=== PATIENT | female | born 1940 | race Caucasian/White ===

== ENCOUNTER 2016-06-17 23:23 | Emergency (ER) | payer OTHER ==
[~2016-06-17] VITALS: Ht 162.6 cm; Wt 113.4 kg
--- NOTE | ~2016-06-17 | EKG ---
[address] [address] ELECTROCARDIOGRAM REPORT Name: MADI MATOS Room #: DEP Vick#: [id number] Admission: 06/17/16 Attend Phys: Discharge: 06/18/16 Date of : 40 Report #: [id number] THIS REPORT FOR: //name// [facility] ED Test Date: 2016-06-17 Test Time: 23:33:49 Pat Name: MADI MATOS Department: Room: Gender: F Hospital Pharmacy Technician: EARNEST : 1940 Requested By: Nina Brown Order Number: [id number] MD: Alex Bolden Measurements Intervals [place] Rate: 89 P: [place]: QRS: -2 QRSD: 90 T: 81 QT: 391 QTc: 476 Interpretive Statements Atrial fibrillation Probable LVH with secondary repol abnrm Anterior Q waves, possibly due to LVH No previous ECG available for comparison Electronically Signed On 06-18-2016 15:30:38 CDT by Alex Bolden [email or web address] <ELECTRONICALLY SIGNED> By: Alex Bolden MD 06/18/16 1530 D: 03/2332 32 Alex Bolden MD /STEPHANIE
[~2016-06-17 23:23] MED LIST: ACETAMINOPHEN325 M1 PO; AFLURIA 2045 MCG/0.4; AMARYL2 MG PO; ASPIRIN EC81 M1 PO; ATENOLOL 50 MG50 M1 PO; AUGMENTIN 875875 MG PO; BIOTIN1 MG PO; BIOTIN2500 MCG PO; CALCIUM 600 +1 EAC1 PO; CARDIZEM CD120 MG PO; CIPRO500 MG PO; COLACE100 MG PO; COREG PO; COUMADIN 2.5MG2.5 M1 PO; COUMADIN 5 MG TA5 M1 PO; ENAL0 PO; ENALAPRIL MALEA20 MG PO; ENDOCET PO; ENTOCORT EC 3 MG3 M1 PO; FENOFIBRATE200 MG PO; FERRO-TIME325 MG PO; GLUCOPHAGE XR500 MG PO; GLUCOPHAGE1000 MG PO; HYDROCHLOROTHIA25 M1 PO; HYDROCODON-ACE1 EAC7 PO; IBUPROFEN 200200 M1 PO; JANUVIA 50 MG T50 M1 PO; JANUVIA25 MG PO; KEFLEX500 MG PO; KLOR-CON PO; LASIX 20 MG TAB20 MG PO; LASIX 40 MG TAB40 M1 PO; LASIX PO; LEVOTHROID100 MC1 PO; LEVOTHROID200 MCG PO; LEVOTHYROXINE0.2 M1 PO; LOPRESSOR25 PO; MACROBID 100 M100 M1 PO; MACRODANTIN100 MG PO; MAG DELAY64 MG PO; METOPROLOL SUCC25 M1 PO; MULTIVITAMINS PO; NIACIN 500 MG500 M1 PO; OXYCONTIN10 M1 PO; PACERONE 200 M200 MG PO; PHENAZOPYRIDIN200 M2 PO; PNEUMOVAX25 MCG/0.5; POTASSIUM20 PO; PRAVASTATIN SOD20 MG PO; PRILOSEC40 MG PO; QUALAQUIN324 MG PO; RESTORIL15 MG PO; RESTORIL30 MG PO; STOOL SOFTENER100 M1 PO; STOOL SOFTENER50 MG PO; VANCOMYCIN PO; VANCOMYCIN100 MG/M1 PO; ZESTRIL20 MG PO
[2016-06-17] MEDS ORDERED: JANUMET 50-1,01 EACH PO (23:50)
[2016-06-17] MEDS ORDERED: MAG DELAY70 MG PO (23:52)
[2016-06-18 00:02] LABS: HEMATOCRIT 36.3 % (37.0-47.0); HEMOGLOBIN 11.8 gm/dL (12.0-15.0); MCH 27.2 pg (26.0-34.0); MCHC 32.6 g/dL (28.0-37.0); MCV 83.5 fL (80.0-100.0); PLATELET COUNT 183 thou/uL (150-400); RBC 4.34 mil/uL (4.20-5.00); RDW 15.3 % (10.5-14.5); WBC 5.7 thou/uL (4.0-11.0)
[2016-06-18 00:06] LABS: MANUAL DIFF YES
[2016-06-18 00:16] LABS: ANION GAP 6 mmol/L (7-16); BUN 24 mg/dL (7-18); CALCIUM 9.3 mg/dL (8.5-10.1); CHLORIDE 106 mmol/L (98-107); CO2 31 mmol/L (21-32); CREATININE 1.1 mg/dL (0.6-1.3); GLUCOSE 170 mg/dL (70-99); NT-PRO BRAIN NAT PEPTIDE 1146 pg/mL (<300); SODIUM 143 mmol/L (136-145); TROPONIN-I < 0.04 ng/mL (<0.04-0.07)
[2016-06-18 00:19] LABS: POTASSIUM 4.4 mmol/L (3.5-5.1)
[2016-06-18 00:34] LABS: ABSOLUTE NEUTROPHILS 3.1 thou/uL (1.4-8.2); ATYPICAL LYMPHS 1 %; TOTAL CELL COUNT 100
== END 2016-06-18 01:40 | disposition home or self-care (01) ==
LOC: ER 23:23
PROVIDERS: Emergency Medicine
DX: I10 Essential (primary) hypertension (principal); Z98.890 Other specified postprocedural states; Z90.710 Acquired absence of both cervix and uterus; Z96.653 Presence of artificial knee joint, bilateral; Z95.0 Presence of cardiac pacemaker; E03.9 Hypothyroidism, unspecified; E78.5 Hyperlipidemia, unspecified; Z88.5 Allergy status to narcotic agent; Z88.8 Allergy status to other drugs, medicaments and biological substances; Z88.6 Allergy status to analgesic agent

== ENCOUNTER → 2016-09-26 | Outpatient (CLI) | payer OTHER ==
[~2016-09-26] MED LIST changes: +JANUMET 50-1,01 EACH PO; +MAG DELAY70 MG PO
[2016-09-26 16:50] LABS: ABSOLUTE NEUTROPHILS 4.6 thou/uL (1.4-8.2); BASOPHILS 0.8 % (0.0-2.0); EOSINOPHILS 1.5 % (0.0-3.0); HEMATOCRIT 38.2 % (37.0-47.0); HEMOGLOBIN 12.4 gm/dL (12.0-15.0); LYMPHOCYTES 16.6 % (24.0-44.0); MCH 26.6 pg (26.0-34.0); MCHC 32.6 g/dL (28.0-37.0); MCV 81.7 fL (80.0-100.0); MONOCYTES 10.4 % (1.0-8.0); PLATELET COUNT 207 thou/uL (150-400); POLYS 70.7 % (36.0-66.0); RBC 4.67 mil/uL (4.20-5.00); RDW 15.4 % (10.5-14.5); WBC 6.6 thou/uL (4.0-11.0)
[2016-09-26 16:51] LABS: URINE BILIRUBIN NEGATIVE (Negative); URINE BLOOD NEGATIVE (Negative); URINE COLOR YELLOW; URINE GLUCOSE-RANDOM* NEGATIVE (Negative); URINE KETONES NEGATIVE (Negative); URINE LEUKOCYTES-REFLEX 1+ (Negative); URINE PROTEIN (DIPSTICK) NEGATIVE (Negative); URINE SPECIFIC GRAVITY 1.015 (1.003-1.035); URINE UROBILINOGEN 0.2 E.U./dl (0.2-1.0)
[2016-09-26 16:52] LABS: MANUAL DIFF NO
[2016-09-26 16:56] LABS: SQUAMOUS 4-10 Moderate /LPF (0-3)
[2016-09-26 16:57] LABS: CASTS None Seen /LPF (None Seen); CRYSTALS None Seen /LPF (None Seen); URINE RBC None Seen /HPF (0-2); URINE WBC-REFLEX >25 Many /HPF (0-5)
[2016-09-26 17:02] LABS: ALBUMIN 3.9 g/dL (3.4-5.0); ALKALINE PHOSPHATASE 50 U/L (46-116); ANION GAP 10 mmol/L (7-16); BUN 23 mg/dL (7-18); CALCIUM 9.1 mg/dL (8.5-10.1); CHLORIDE 104 mmol/L (98-107); CHOLESTEROL 103 mg/dL (<200); CO2 28 mmol/L (21-32); CREATININE 1.1 mg/dL (0.6-1.0); GLUCOSE 164 mg/dL (74-106); HDL CHOLESTEROL 21 mg/dL (>40); LDL CHOLESTEROL 19 mg/dL (<100); POTASSIUM 3.5 mmol/L (3.5-5.1); SGOT 26 U/L (15-37); SGPT 34 U/L (30-65); SODIUM 142 mmol/L (136-145); TC:HDL 4.9 Ratio (Not establshd); TOTAL BILIRUBIN 0.5 mg/dL (<0.1-1.0); TOTAL PROTEIN 7.2 g/dL (6.4-8.2); TRIGLYCERIDE 315 mg/dL (<150); VLDL 63 mg/dL (<40)
[2016-09-27 04:07] LABS: GLYCOHEMOGLOBIN (HGB A1C) 7.2 % (4.8-5.6)
== END ==
LOC: LAB 15:23
PROVIDERS: Nurse Practitioner Gerontology
DX: Z01.812 Encounter for preprocedural laboratory examination (principal)

== ENCOUNTER 2017-04-26 14:24 | Inpatient (IN) | payer OTHER ==
[~2017-04-26] VITALS: Ht 167.6 cm; Wt 98.7 kg
--- NOTE | ~2017-04-26 | HC ---
[facility] [place] [address] CONSULTATION Name: MADI MATOS Room #: 427-P [facility] M.R.#: [id number] Admission: 04/26/17 Attend Phys: Rasta Bobo MD Discharge: 04/29/17 Date of : 40 Report #: [id number] THIS REPORT FOR: //name// CC: RASTA Bobo PRIMARY CARE PHYSICIAN: Dr. Rasta Bobo. REASON FOR CONSULTATION: Hemoptysis. HISTORY OF PRESENT ILLNESS: The patient is a 76-year-old white female who presents to Emergency Room with "hematemesis." Chest x-ray revealed infiltrates. A pulmonary consultation was requested. The patient underwent colonoscopy yesterday. The procedure went well. When she went home later that evening she started to cough up blood. She states that she coughed up bright red blood, perhaps less than half a coffee cup full. For that reason, she presented to the Emergency Room. She was felt to have hematemesis while in the ER, however. Currently, her cough has much improved. She is now coughing up dark reddish sputum. Otherwise, denies any febrile illness, chest pain, nausea, vomiting, diarrhea. She denies any past history of hemoptysis. Chest radiograph performed earlier today shows patchy infiltrates seen in the predominantly left lung field. Mild cardiomegaly is noted. PAST MEDICAL HISTORY: Notable for no significant lung history. She has a history of: 1. Anemia. 2. Bradycardia, status post pacemaker placement. 3. Sick sinus syndrome. 4. Degenerative joint disease. 5. Hypertension. 6. Past history of GI bleed while on anticoagulation. 7. History of breast carcinoma, undergoing right mastectomy in 1983. 8. Pulmonary atrial fibrillation, only on aspirin. 9. Diabetes mellitus type 2. 10. Lumbar stenosis with surgery 11. Hypothyroidism. PAST SURGICAL HISTORY: Notable for right lumpectomy status post chemo and radiation, hysterectomy, right herniorrhaphy, cataract surgery, bilateral right knee surgery, Gregg shunt surgery with stomach stapling in 1980, right hip surgery, cervical laminectomy, [facility] [address] [place] [address] CONSULTATION Name: MADI MATOS Room #: 427-P [facility] M.R.#: [id number] Admission: 04/26/17 Attend Phys: Rasta Bobo MD Discharge: 04/29/17 Date of : 40 Report #: [id number] ALLERGIES: CODEINE which causes her to be very sick, NIACIN causes pruritus. HOME MEDICATIONS: Include potassium supplements, Lasix, pravastatin, Restoril, Niacin ?, aspirin, biotin, fenofibrate, multivitamins, Lopressor, Synthroid, Janumet, vitamin C supplements, iron supplements. FAMILY HISTORY: Mother had breast cancer. Father's health is unknown. SOCIAL HISTORY: She is . 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 She is a lifetime nonsmoker. She denies any alcohol use. REVIEW OF SYSTEMS: As mentioned above, otherwise 10-point system review negative. PHYSICAL EXAMINATION: GENERAL: She is awake, alert, in no apparent distress. VITAL SIGNS: Temperature is 98.4 degrees Fahrenheit, pulse is 96, respiratory rate is 20, blood pressure 140/70 mmHg, saturation 94%. HEENT: Unremarkable. NECK: Supple, without any lymphadenopathy or thyromegaly. CHEST: Breath sounds are good with few scattered crackles in the left base. CARDIOVASCULAR: Normal S1, S2. There are no murmurs or gallop. There is no JVD. There is no carotid bruit. Pulses are 2+/4+ bilaterally. ABDOMEN: Soft, nontender, no organomegaly or masses felt. GENITOURINARY: Deferred. RECTAL: Deferred. EXTREMITIES: There is no edema, cyanosis or clubbing. LABORATORY DATA: Chest x-ray again shows patchy infiltrates involving the left lower lung field and mild degree in the right lower lobe. Electrolytes are normal, creatinine 0.8. Liver function enzymes are grossly unremarkable. WBC is 12,200, hemoglobin is 12.9. No evidence of bandemia. IMPRESSION: 1. Questionable hematemesis versus hemoptysis in this 76-year-old white female. According to the patient, she coughed it out. This occurred last evening following a colonoscopy. She remembers that they did oral suctioning during the procedure. With chest radiograph findings of infiltrates, it is presumed the patient had hemoptysis due to upper airway irritation. It is unclear if she has hematemesis and GI has been consulted. In regards to the infiltrates, if this is old blood, this should resolve without need for antibiotics. [address] [address] CONSULTATION Name: MADI MATOS Room #: 427-P [facility] IN M.R.#: [id number] Admission: 04/26/17 Attend Phys: Rasta Bobo MD Discharge: 04/29/17 Date of : 40 Report #: [id number] 2. Recent colonoscopy. 3. Pulmonary atrial fibrillation, on aspirin, not on anticoagulation due to history of gastrointestinal bleed. 4. Sick sinus syndrome, bradycardia, status post permanent pacemaker placement. 5. Hypertension. 6. Diabetes mellitus. 7. Osteoarthritis. 8. Hypothyroidism. 9. History of anemia, chronic. 10. Gastroesophageal reflux disease. RECOMMENDATION: I think it is reasonable to start broad spectrum antibiotics to cover for possible aspiration pneumonia. If patient remains afebrile without symptoms, could discontinue antibiotics. We will followup chest x-ray tomorrow. Follow closely for possible recurrent hemoptysis and/or hematemesis. We will await GI workup. DVT and GI prophylaxis recommended. Thank you for this consultation. <ELECTRONICALLY SIGNED> By: Yao Chaidez MD 05/01/17 1458 1217 2206 Yao Chaidez MD /nt
[~2017-04-26 14:24] MED LIST changes: -AUGMENTIN 875-1 EACH PO
[2017-04-26 14:26] VITALS: BP 155/83
[2017-04-26 15:03] LABS: BASOPHILS 0.2 % (0.0-2.0); EOSINOPHILS 0.2 % (0.0-3.0); HEMATOCRIT 40.1 % (37.0-47.0); HEMOGLOBIN 12.9 gm/dL (12.0-15.0); MCH 25.9 pg (26.0-34.0); MCV 80.8 fL (80.0-100.0); MONOCYTES 6.3 % (1.0-8.0); PLATELET COUNT 179 thou/uL (150-400); POLYS 90.3 % (36.0-66.0); RBC 4.97 mil/uL (4.20-5.00); RDW 16.3 % (10.5-14.5); WBC 12.2 thou/uL (4.0-11.0)
[2017-04-26 15:12] LABS: CALCIUM 9.5 mg/dL (8.5-10.1); CREATININE 0.8 mg/dL (0.6-1.0); POTASSIUM 4.5 mmol/L (3.5-5.1)
[2017-04-26 15:17] LABS: APTT 25.3 Seconds (24.5-32.8); INR 1.1
[2017-04-26 15:18] LABS: ALBUMIN 3.7 g/dL (3.4-5.0); TOTAL BILIRUBIN 0.8 mg/dL (<0.1-1.0)
[2017-04-26 16:01] VITALS: BP 155/83
[2017-04-26 16:38] VITALS: BP 148/76
[2017-04-26 20:35] VITALS: BP 124/64
[2017-04-26 21:45] LABS: HEMATOCRIT 35.6 % (37.0-47.0); HEMOGLOBIN 11.6 gm/dL (12.0-15.0)
[2017-04-27 04:12] VITALS: BP 141/69
[2017-04-27 12:46] LABS: HEMATOCRIT 34.7 % (37.0-47.0); HEMOGLOBIN 11.4 gm/dL (12.0-15.0)
[2017-04-27 20:00] VITALS: BP 134/66
[2017-04-28 04:35] VITALS: BP 159/88
[2017-04-28 04:58] LABS: HEMATOCRIT 34.5 % (37.0-47.0); HEMOGLOBIN 11.1 gm/dL (12.0-15.0); MCH 26.1 pg (26.0-34.0); MCV 81.6 fL (80.0-100.0); RBC 4.23 mil/uL (4.20-5.00); RDW 16.3 % (10.5-14.5)
[2017-04-28 05:25] LABS: CALCIUM 8.7 mg/dL (8.5-10.1); CREATININE 0.9 mg/dL (0.6-1.0)
[2017-04-28 07:11] VITALS: BP 150/85
[2017-04-28 08:18] LABS: URINE BILIRUBIN NEGATIVE (Negative); URINE BLOOD NEGATIVE (Negative); URINE CLARITY CLEAR; URINE COLOR YELLOW; URINE GLUCOSE-RANDOM* NEGATIVE (Negative); URINE KETONES NEGATIVE (Negative); URINE LEUKOCYTES 1+ (Negative); URINE NITRITE NEGATIVE (Negative); URINE PROTEIN (DIPSTICK) NEGATIVE (Negative); URINE UROBILINOGEN 0.2 E.U./dl (0.2-1.0)
[2017-04-28 08:27] LABS: BACTERIA None Seen /HPF (None Seen); CASTS None Seen /LPF (None Seen); CRYSTALS None Seen /LPF (None Seen); SQUAMOUS 4-10 Moderate /LPF (0-3); URINE RBC 0-2 Rare /HPF (0-2); WBC CLUMPS Few (None Seen)
[2017-04-28 15:36] VITALS: BP 145/71
[2017-04-28 19:45] VITALS: BP 143/78
[2017-04-29 03:18] VITALS: BP 154/58
[2017-04-29 08:10] VITALS: BP 162/102
[2017-04-29] MEDS ORDERED: AUGMENTIN 875-1 EACH PO (08:48)
[2017-04-29 10:04] VITALS: BP 162/102
== END 2017-04-29 11:19 | disposition home or self-care (01) | DRG 177 ==
LOC: ER 14:24 → 4E 15:16
PROVIDERS: Emergency Medicine; Family Medicine; Internal Medicine Gastroenterology; Internal Medicine Pulmonary Disease; Nurse Practitioner
DX: J69.0 Pneumonitis due to inhalation of food and vomit (principal); E43 Unspecified severe protein-calorie malnutrition; K92.2 Gastrointestinal hemorrhage, unspecified; I42.9 Cardiomyopathy, unspecified; Z96.653 Presence of artificial knee joint, bilateral; I25.10 Atherosclerotic heart disease of native coronary artery without angina pectoris; Z96.641 Presence of right artificial hip joint; M19.90 Unspecified osteoarthritis, unspecified site; E03.9 Hypothyroidism, unspecified; E78.5 Hyperlipidemia, unspecified; K21.9 Gastro-esophageal reflux disease without esophagitis; E78.00 Pure hypercholesterolemia, unspecified; E11.9 Type 2 diabetes mellitus without complications; I50.9 Heart failure, unspecified; I10 Essential (primary) hypertension; I49.5 Sick sinus syndrome; I48.91 Unspecified atrial fibrillation; Z80.3 Family history of malignant neoplasm of breast; Z90.710 Acquired absence of both cervix and uterus; Z95.0 Presence of cardiac pacemaker; Z85.3 Personal history of malignant neoplasm of breast; Z92.21 Personal history of antineoplastic chemotherapy; Z92.3 Personal history of irradiation; Z98.42 Cataract extraction status, left eye; Z98.41 Cataract extraction status, right eye; Z88.6 Allergy status to analgesic agent; Z88.1 Allergy status to other antibiotic agents; Z90.13 Acquired absence of bilateral breasts and nipples; Z79.82 Long term (current) use of aspirin; Z79.899 Other long term (current) drug therapy; G47.00 Insomnia, unspecified; Z86.010 Personal history of colon polyps
CPT/HCPCS: 10183; 62110

== ENCOUNTER → 2017-04-26 | Outpatient (CLI) | payer OTHER ==
[~2017-04-26] VITALS: Ht 167.6 cm; Wt 99.8 kg
[~2017-04-26] MED LIST changes: +AUGMENTIN 875-1 EACH PO; +IRON18 M1 PO; -LEVOTHYROXINE0.2 M1 PO; +SYNTHROID200 MCG PO; +VITAMIN C1000 MG PO
--- NOTE | ~2017-04-26 | P ---
[facility] [place] [address] PROCEDURE REPORT Name: MADI MATOS [id number] Admission: 04/26/17 Attend Phys: Blake Young Discharge: Date of : 40 Report #: [id number] THIS REPORT FOR: //name// CC: Blake Bobo MD DATE OF SERVICE: 04/26/2017 PROCEDURE PERFORMED: Colonoscopy. HISTORY OF PRESENT ILLNESS: The patient is a 76-year-old female with a history of colon polyps, here for routine followup. She denies any symptoms. No family history of colon cancer. PROCEDURE: The risks and benefits of the procedure were explained to the patient, those risks including, but not limited to bleeding, perforation and the risk of sedation. She understood these risks and gave informed consent. Sedation was given using propofol per anesthesia. Next, a digital rectal exam was initially performed, which was normal. Next, using a standard Fujinon colonoscope, the scope was placed in the patient's anus and advanced under direct vision to the cecum. The overall prep was good in most areas and was fair in some areas. The cecum and ileocecal valve were normal in appearance. Ascending and transverse colon were normal. Multiple diverticula were noted in the descending and sigmoid colon, no evidence of inflammation, otherwise normal. The rectal mucosa was normal. On retroflexion, no abnormalities were noted. The scope was then withdrawn and the procedure terminated. The patient tolerated the procedure well. IMPRESSION: 1. Diverticulosis of left colon. 2. Otherwise, normal colonoscopy. RECOMMENDATIONS: Observe the patient at this time. No repeat screening colonoscopy needed due to the patient's age. Thank you for allowing me to participate in her care. <ELECTRONICALLY SIGNED> By: Blake Castrejon MD 04/28/17 1622 1044 1139 Blake Castrejon MD /nt
== END | disposition home or self-care (01) ==
LOC: GI 09:10
DX: Z09 Encounter for follow-up examination after completed treatment for conditions other than malignant neoplasm (principal); Z86.010 Personal history of colon polyps; K57.30 Diverticulosis of large intestine without perforation or abscess without bleeding; I25.10 Atherosclerotic heart disease of native coronary artery without angina pectoris; I11.0 Hypertensive heart disease with heart failure; I50.9 Heart failure, unspecified; I48.91 Unspecified atrial fibrillation; E11.9 Type 2 diabetes mellitus without complications; D64.9 Anemia, unspecified; K21.9 Gastro-esophageal reflux disease without esophagitis; E78.00 Pure hypercholesterolemia, unspecified; E03.9 Hypothyroidism, unspecified; M19.90 Unspecified osteoarthritis, unspecified site; Z95.0 Presence of cardiac pacemaker; Z85.3 Personal history of malignant neoplasm of breast; Z98.890 Other specified postprocedural states; Z90.710 Acquired absence of both cervix and uterus; Z96.653 Presence of artificial knee joint, bilateral; Z79.899 Other long term (current) drug therapy; Z88.6 Allergy status to analgesic agent; Z88.8 Allergy status to other drugs, medicaments and biological substances; Z98.41 Cataract extraction status, right eye; Z98.42 Cataract extraction status, left eye; Z96.1 Presence of intraocular lens; Z79.82 Long term (current) use of aspirin
CPT/HCPCS: 62110

== ENCOUNTER → 2018-01-02 | Outpatient (CLI) | payer OTHER ==
[~2018-01-02] MED LIST changes: +AUGMENTIN 875-1 EACH PO
== END ==
LOC: NUC 09:35
DX: R07.9 Chest pain, unspecified (principal)

== ENCOUNTER 2018-01-30 15:04 | Emergency (ER) | payer OTHER ==
[~2018-01-30] VITALS: Ht 167.6 cm; Wt 97.5 kg
[2018-01-30 15:50] LABS: HEMATOCRIT 33.8 % (37.0-47.0); HEMOGLOBIN 11.3 gm/dL (12.0-15.0); MCH 26.9 pg (26.0-34.0); MCHC 33.6 g/dL (28.0-37.0); MCV 80.2 fL (80.0-100.0); PLATELET COUNT 139 thou/uL (150-400); RBC 4.21 mil/uL (4.20-5.00); RDW 15.5 % (10.5-14.5); WBC 4.3 thou/uL (4.0-11.0)
[2018-01-30 15:51] LABS: URINE BILIRUBIN NEGATIVE (Negative); URINE BLOOD NEGATIVE (Negative); URINE CLARITY CLEAR; URINE COLOR YELLOW; URINE GLUCOSE-RANDOM* NEGATIVE (Negative); URINE KETONES NEGATIVE (Negative); URINE PROTEIN (DIPSTICK) TRACE (Negative)
[2018-01-30 15:56] LABS: CALCIUM 9.2 mg/dL (8.5-10.1)
[2018-01-30 15:59] LABS: URINE LEUKOCYTES-REFLEX 1+ (Negative); URINE NITRITE-REFLEX POSITIVE (Negative)
[2018-01-30 16:00] LABS: BACTERIA-REFLEX >30 Many /HPF (None Seen); CASTS None Seen /LPF (None Seen); CRYSTALS None Seen /LPF (None Seen); SQUAMOUS 0-3 Few /LPF (0-3); URINE RBC 0-2 Rare /HPF (0-2); URINE WBC-REFLEX >25 Many /HPF (0-5)
[2018-01-30 16:11] LABS: ABSOLUTE NEUTROPHILS 3.1 thou/uL (1.4-8.2)
[2018-01-30] MEDS ORDERED: ZANAFLEX4 MG PO (16:47)
[2018-01-30] MEDS ORDERED: FLOMAX0.4 MG PO (16:47)
[2018-01-30] MEDS ORDERED: TRIMPEX PO (16:48)
[2018-01-30] MEDS ORDERED: KEFLEX500 M1 PO (17:00)
[2018-01-30 18:24] VITALS: BP 135/87
== END 2018-01-30 18:25 | disposition home or self-care (01) ==
LOC: ER 15:04
PROVIDERS: Emergency Medicine
DX: N39.0 Urinary tract infection, site not specified (principal); R51 Headache; R05 Cough; K59.00 Constipation, unspecified; I25.10 Atherosclerotic heart disease of native coronary artery without angina pectoris; I42.9 Cardiomyopathy, unspecified; I48.91 Unspecified atrial fibrillation; M19.90 Unspecified osteoarthritis, unspecified site; E03.9 Hypothyroidism, unspecified; E78.5 Hyperlipidemia, unspecified; E11.9 Type 2 diabetes mellitus without complications; I11.0 Hypertensive heart disease with heart failure; I50.9 Heart failure, unspecified; D64.9 Anemia, unspecified; K21.9 Gastro-esophageal reflux disease without esophagitis; Z96.653 Presence of artificial knee joint, bilateral; Z95.0 Presence of cardiac pacemaker; Z85.3 Personal history of malignant neoplasm of breast; Z88.0 Allergy status to penicillin; Z88.5 Allergy status to narcotic agent; Z88.8 Allergy status to other drugs, medicaments and biological substances

== ENCOUNTER → 2019-08-28 | Outpatient (CLI) | payer OTHER ==
[~2019-08-28] VITALS: Ht 167.6 cm; Wt 95.3 kg
[~2019-08-28] MED LIST changes: +CINNAMON500 MG PO; +CRANBERRY500 M3 PO; +FLOMAX0.4 MG PO; +GLUMETZA500 PO; +KEFLEX500 M1 PO; +LEVOXYL112 MCG PO; +MAGNESIUM250 M1 PO; +PROBIOTIC1 EAC7 PO; +STOOL SOFTENER100 MG PO; +TRIMPEX PO; +ZANAFLEX4 MG PO; +[UNRECOGNIZED DRUG - OTHER] PO
--- NOTE | 2019-08-29 16:07 | PATH ---
[facility] [address] [address] PATHOLOGY RPT PROCEDURE Name: DIAMOND MATOS Room #: REG ZEUS Roger.#: [id number] Admission: 08/28/19 Date of : 40 Discharge: Report #: [id number] Path Case #: [id number] [facility] Accession Number: [id number] . 01 Material submitted: . PART A: duodenum - DUODENAL BIOPSY RULE OUT SPRUE PART B: stomach - BIOPSY GASTRITIS R/O H. PYLORI . 01 Clinical history: . Anemia A. Rule out sprue B. Rule out H. pylori . 02 Diagnosis: A. Small bowel mucosa, duodenum, rule out sprue, endoscopic biopsy: - No diagnostic abnormalities present. - Negative for villous blunting or increase in intraepithelial lymphocytes. . B. Gastric mucosa, gastritis, rule out H. pylori, endoscopic biopsy: - Moderate reactive gastropathy associated with hyperplastic surface epithelium. - Negative for intestinal metaplasia or atrophy. - Negative for Helicobacter pylori (properly controlled immunohistochemical stain performed). (IUV:pit 08/29/2019) QTP 08/29/2019 1303 Local . 02 Electronically signed: . Qing Goetz MD, Pathologist NPI- [id number] . 01 Gross description: . A. The specimen is received in formalin, labeled "Khalif Diamond, duodenal BX" and consists of 4 fragments of daniels tissue measuring 0.9 x 0.5 x 0.3 cm in aggregate which are entirely submitted in A1. . B. The specimen is received in formalin, labeled "Diamond Matos, BX gastritis" and consists of multiple fragments of pink-daniels tissue measuring 1.1 x 0.5 x 0.3 cm in aggregate which are entirely submitted in B1. (SDY; 08/28/2019) SYU/SYU 08/28/2019 1711 Local . 02 Pathologist provided ICD-10: K31.9, D64.9 . 02 CPT . [address] [address] PATHOLOGY RPT PROCEDURE Name: DIAMOND MATOS Room #: REG [facility]#: [id number] Admission: 08/28/19 Date of : 40 Discharge: Report #: [id number] Path Case #: [id number] Specimen Comment: A courtesy copy of this report has been sent to [phone] Specimen Comment: [id number] Specimen Comment: Report sent to / DR DAVE Performed at: [address], [place], [place] [id number] MD Enrique Ramirez MD Phone: [phone] Performed at: [address] [id number] MD Qing Goetz MD Phone: [phone]
--- NOTE | 2019-08-30 08:48 | P ---
[facility] [place] [address] PROCEDURE REPORT Name: DIAMOND MATOS Room #: REG [facility] Vick#: [id number] Admission: 08/28/19 Attend Phys: Blake Young Discharge: Date of : 40 Report #: [id number] THIS REPORT FOR: cc: Rasta Bobo MD, Neal A. MD McElhinney, Christian C. MD ~ CC: Blake Bobo MD DATE OF SERVICE: 08/28/2019 PROCEDURE PERFORMED: Upper endoscopy with biopsies. HISTORY OF PRESENT ILLNESS: The patient is a 79-year-old female with recent labs showing anemia. Hemoglobin was 6.8. The patient is on aspirin on a daily basis. She denies any melena. She does report a small amount of bright red blood per rectum at times, but rarely. She had a colonoscopy in April of 2011 with left-sided diverticulosis, but otherwise negative. No stool Hemoccult testing that she is aware of. She denies any abdominal pain, no nausea, vomiting or dysphagia. Plan is for EGD today. DESCRIPTION OF PROCEDURE: The risks and benefits of the procedure were explained to the patient, those risks including but not limited to bleeding, perforation and the risk of sedation. She understood these risks and gave informed consent. Sedation was given using propofol per Anesthesia. Next, using a standard Olympus upper endoscope, the scope was placed in the patient's mouth and advanced under direct vision through the esophagus into the stomach, at which point it was obvious the patient has had surgical changes. A small gastric remnant was noted. Surgical changes consistent with a Billroth II type of anastomosis. I was able to advance the scope down both the efferent and afferent limbs, the duodenum and jejunal limbs were normal. No evidence of ulcerations. No evidence of bleeding. Random biopsies were obtained to rule out celiac sprue. The scope was then brought back up to the surgical anastomosis, there was a mild gastritis in the remaining gastric pocket. There is only approximately 8 cm of gastric mucosa remaining. No evidence of ulcerations or bleeding. Biopsies were obtained to rule out H. pylori. The GE junction was normal. No evidence of esophagitis. The esophagus was normal throughout. The larynx was normal. The scope was then withdrawn and the procedure terminated. The patient tolerated the procedure well. IMPRESSION: 1. Surgical changes noted as described above. 2. Gastritis in the remaining stomach. 3. No evidence of bleeding. Biopsies were obtained. [facility] [address] [place] [address] PROCEDURE REPORT Name: DIAMOND MATOS Room #: REG [facility].#: [id number] Admission: 08/28/19 Attend Phys: Blake Young Discharge: Date of : 40 Report #: [id number] RECOMMENDATIONS: 1. Await biopsy results. 2. Recommend Hemoccult testing of stools. 3. If positive, consider M2 capsule. The patient had a colonoscopy just 2 years ago, which was essentially negative. Thank you for allowing me to participate in her care. <ELECTRONICALLY SIGNED> By: Blake Castrejon MD 08/30/19 0848 0835 1003 Blake Casrtejon MD /nt
== END | disposition home or self-care (01) ==
LOC: GI 07:11
PROVIDERS: ATTEND Specialist
DX: D64.9 Anemia, unspecified (principal); K31.9 Disease of stomach and duodenum, unspecified; K62.5 Hemorrhage of anus and rectum; I11.0 Hypertensive heart disease with heart failure; I50.9 Heart failure, unspecified; E78.5 Hyperlipidemia, unspecified; I48.91 Unspecified atrial fibrillation; K21.9 Gastro-esophageal reflux disease without esophagitis; E11.9 Type 2 diabetes mellitus without complications; E03.9 Hypothyroidism, unspecified; M19.90 Unspecified osteoarthritis, unspecified site; Z98.890 Other specified postprocedural states; Z79.899 Other long term (current) drug therapy; Z79.01 Long term (current) use of anticoagulants; Z96.653 Presence of artificial knee joint, bilateral; Z96.641 Presence of right artificial hip joint; Z90.710 Acquired absence of both cervix and uterus; Z85.3 Personal history of malignant neoplasm of breast; Z95.0 Presence of cardiac pacemaker; Z98.41 Cataract extraction status, right eye; Z98.42 Cataract extraction status, left eye; Z79.82 Long term (current) use of aspirin; Z88.0 Allergy status to penicillin; Z88.8 Allergy status to other drugs, medicaments and biological substances; Z11.59 Encounter for screening for other viral diseases
CPT/HCPCS: 62110; 62900

== ENCOUNTER 2019-09-02 19:59 | Observation (INO) | payer OTHER ==
[~2019-09-02] VITALS: Ht 167.6 cm; Wt 96.2 kg
[2019-09-02 20:06] VITALS: BP 121/63
[2019-09-02 20:47] LABS: HEMATOCRIT 24.3 % (37.0-47.0); HEMOGLOBIN 7.1 gm/dL (12.0-15.0); MCH 20.5 pg (26.0-34.0); MCHC 29.4 g/dL (28.0-37.0); MCV 69.8 fL (80.0-100.0); PLATELET COUNT 249 thou/uL (150-400); RBC 3.47 mil/uL (4.20-5.00); RDW 18.8 % (10.5-14.5); WBC 6.3 thou/uL (4.0-11.0)
[2019-09-02 20:53] LABS: CREATININE 1.1 mg/dL (0.6-1.0); POTASSIUM 3.7 mmol/L (3.5-5.1)
[2019-09-02 21:00] LABS: INR 1.1; PROTIME 11.3 Seconds (9.3-11.4)
[2019-09-02 21:07] LABS: ALBUMIN 3.6 g/dL (3.4-5.0); TOTAL BILIRUBIN 0.5 mg/dL (0.2-1.0)
[2019-09-02 21:42] LABS: ABSOLUTE NEUTROPHILS 4.9 thou/uL (1.4-8.2); ANISOCYTOSIS 1+; HYPOCHROMASIA SLIGHT; MICROCYTES 2+; POLYCHROMASIA OCCASIONAL
[2019-09-02 22:04] VITALS: BP 141/64
--- NOTE | 2019-09-02 22:06 | NUR ---
REPORT CALLED TO FLOOR--NO ANSWER.
[2019-09-02 22:11] VITALS: BP 133/58
[2019-09-03 02:51] VITALS: BP 134/50; BP 147/74
--- NOTE | 2019-09-03 06:22 | NUR ---
PT TO UNIT AROUND 2210. PT IS OBSERVATION STATUS. A&O X4. CONTINENT OF BB, UP TO TOILET WITH STANDBY DUE TO WEAKNESS. HAS A PACEMAKER, NORMAL S1,S2. 1 UNIT TRANSFUSING FOR A HGB OF 7.1, PT TOLERATING WELL. EDEMA BILATERAL LOWER AND UPPER EXTREMITIES WITH GOOD PULSES. VSS. PT DID NOT SLEEP WELL DUE TO CONSTANT INTERRUPTIONS/LACK OF SLEEP MEDICATION. HOPES THAT SHE CAN RETURN HOME TODAY. WILL CONTINUE TO MONITOR.
[2019-09-03 08:17] VITALS: BP 151/71
[2019-09-03 08:22] LABS: HEMATOCRIT 26.3 % (37.0-47.0); HEMOGLOBIN 7.9 gm/dL (12.0-15.0)
--- NOTE | 2019-09-03 08:46 | EKG ---
[facility] [place] [address] ELECTROCARDIOGRAM REPORT Name: DIAMOND MATOS Room #: 447-P [facility] M.R.#: [id number] Admission: 09/02/19 Attend Phys: Rasta Bobo MD Discharge: Date of : 40 Report #: [id number] THIS REPORT FOR: cc: Rasta Bobo MD, Neal A. MD Lundgren,Larry Singer MD [facility] ~ THIS REPORT FOR: //name// [facility] ED Test Date: 2019-09-02 Test Time: 20:51:37 Pat Name: DIAMOND MATOS Department: Room: [facility] Gender: F Applications Scientist: MARGE : 1940 Requested By: Matthew Pruitt Order Number: [id number] MD: Larry Tejeda Measurements Intervals [place] Rate: 79 P: [place]: QRS: -9 QRSD: 95 T: 102 QT: 393 QTc: 451 Interpretive Statements Atrial fibrillation Ventricular premature complex Nonspecific repol abnormality, lateral leads Compared to ECG 06/17/2016 23:33:49 Ventricular premature complex(es) now present Electronically Signed On 09-03-2019 8:45:06 CDT by Larry Tejeda [email or web address] <ELECTRONICALLY SIGNED> By: Larry Tejeda MD, [facility] 09/03/19844 50 50 Larry Tejeda MD, [facility] /EPI
[2019-09-03 12:54] VITALS: BP 151/71
--- NOTE | 2019-09-03 12:56 | NUR ---
ASSESSMENT: CM REVIEWED CHART. PT IS ALERT AND ORIENTED X4. PT HAS ORDERS TO DISCHARGE HOME AND WILL GET OUPATIENT INFUSION X4. CM SPOKE WITH PT WHO REPORTS SHE CAN COME TO [facility] FOR OUTPATIENT INFUSION AND HER SISTER WHO SHE LIVES WITH CAN BRING HER. CM CONTACTED LIZ FROM OUTPATIENT INFUSION [phone] TO NOTIFY HER. SHE STATES THEY HAVE LIMITED HOURS DUE TO COVID BUT CAN SEE PATIENT THIS MONDAY 09/04 AND 09/05 AT 1100AM AND THEN SCHEDULE THE OTHER TWO APPOINTMENTS THE FOLLOWING WEEK. CM NOTIFIED ATTENDING AND PT. PT REPORTS SHE LIVES IN A HOUSE WITH HER SISTER. SHE REPORTS TWO STEPS WITH HANDRAILS TO ENTER AND ABOUT 14 STEPS WITH [employer]ANDRAILS TO HER BEDROOM. PT REPORTS SHE AMBULATES INDEPENDENTLY IN THE HOME BUT USES A CANE OUTSIDE THE HOME. PT HAS A GRAB BAR AND SHOWER CHAIR. PT REPORTS SHE HAS HAD HH IN THE PAST BUT UNSURE THE AGENCY. PT STATES SHE HAS ALSO BEEN TO [facility] BEFORE [facility]. CM DISCUSSED ROLE. PT DENIES THE NEED FOR HH AND HAS PLANS OF RETURNING ON MONDAY FOR OUTPT INFUSION. CM INSTRUCTED PATIENT TO GO THROUGH THE MAIN ENTERANCE AND ASK FOR REGISTRATION. SHE WAS INSTRUCTED TO SHOW UP AROUND 10:45. PT REPORTS NO FURTHER NEEDS FROM CM.
[2019-09-03 15:02] VITALS: BP 151/71
--- NOTE | 2019-09-03 15:48 | NUR ---
PT CARE ASSUMED APPROX 0700. ASSESSMENT CHARTED. PT DENIED PAIN AND SOA. VSS. DISCHARGED AT THIS TIME. DISCHARGE EDUCATION REVIEWED WITH PT. PT DENIED QUESTIONS OR CONCERNS REGARDING POST HOSPITAL CARES AND OUTPT IRON INFUSIONS. IV OUT. PT ESCORTED OFF UNIT VIA WHEELCHAIR BY THIS NURSE JUST A MOMENT AGO.
== END 2019-09-03 15:35 | disposition home or self-care (01) ==
LOC: ER 19:59 → EROBS 21:26 → 4S 21:26
PROVIDERS: Emergency Medicine; ADMIT Family Medicine; ATTEND Family Medicine
DX: D64.9 Anemia, unspecified (principal); I11.0 Hypertensive heart disease with heart failure; I50.9 Heart failure, unspecified; R51 Headache; K92.2 Gastrointestinal hemorrhage, unspecified; E11.9 Type 2 diabetes mellitus without complications; E03.9 Hypothyroidism, unspecified; M19.90 Unspecified osteoarthritis, unspecified site; R11.2 Nausea with vomiting, unspecified; N39.0 Urinary tract infection, site not specified
CPT/HCPCS: 10100

== ENCOUNTER → 2019-09-05 | Outpatient (CLI) | payer OTHER ==
[2019-09-05 11:15] VITALS: BP 121/57
[2019-09-05 12:10] VITALS: BP 129/67
[2019-09-05 12:16] VITALS: BP 129/67
--- NOTE | 2019-09-05 12:25 | NUR ---
PT IN FOR 1ST OF 4 IV VENOFER DOSES FOR HER RECENTLY DIAGNOSED IRON DEFICIENCY ANEMAI. 1 DOSE ALREADY GIVEN IN THE HOSPITAL WELL A BLOOD TRANFUSION. DISMISSED ON 09/02. REPORTS DOING OK. LIVES AT HOME WITH HER SISTER. TODAY'S DOSE GIVEN SLOW IV PUSH. NO S/S REACTION. VSS. LEFT SALINE LOCK IN PLACE FOR DOSE WHEN PT RETURNS TOMORROW. CALLED DR. DAVE TO CONFIRM THAT PT IS TO CONTINUE TO TAKE HER ORAL IRON AT HOME WELL--HE SAID YES, AND PT NOTIFIED. PT DISMISSED IN STABLE CONDITION. SCHEDULED TO RETURN AGAIN IN THE MORNING.
== END ==
LOC: OPONC 10:56
PROVIDERS: ATTEND Family Medicine
DX: D50.9 Iron deficiency anemia, unspecified (principal)
CPT/HCPCS: 95113

== ENCOUNTER → 2019-09-06 | Outpatient (CLI) | payer OTHER ==
[2019-09-06 11:10] VITALS: BP 154/82
[2019-09-06 11:40] VITALS: BP 148/83
--- NOTE | 2019-09-06 11:40 | NUR ---
IN FOR 2ND SCHEDULED OUTPATIENT VENOFER DOSE. STATES TOLERATED YESTERDAY'S WELL, NO NOTED SIDE EFFECTS. SALINE LOCK REMAINS PATENT PER LEFT HAND AND USED FOR SLOW IV PUSH OF TODAY'S DOSE. PT TOLERATED WITHOUT INCIDENT, NO S/S REACTION, VSS POST. SALINE LOCK REMOVED PRIOR TO DISMISSAL. NOTE BILAT ANKLE EDEMA PERSISTS. ENCOURAGED PT TO ELEVATE LEGS AND WEIGH DAILY AND REPORT ANY WT GAIN TO HER WASTE DUSTER. DISMISSED IN STABLE CONDITION. SCHEDULED TO RETURN AGAIN ON MONDAY.
== END ==
LOC: OPONC 09:37
PROVIDERS: ATTEND Family Medicine
DX: D64.9 Anemia, unspecified (principal)
CPT/HCPCS: 95113

== ENCOUNTER → 2019-09-10 | Outpatient (CLI) | payer OTHER ==
[2019-09-10 11:10] VITALS: BP 135/66
[2019-09-10 11:50] VITALS: BP 141/65
--- NOTE | 2019-09-10 12:54 | NUR ---
IN FOR VENOFER IV PUSH. STATED FEELING A LITTLE BETTER BUT STILL VERY FATIGUED AND FEELS LIKE SHE WANTS TO SLEEP ALL THE TIME. VENOFER GIVEN SLOW IV PUSH OVER 10 MINUTES AND TOLERATED WELL. OBSERVED FOR 15 MINUTES. POST BP GOOD. REMOVED IV AND DISMISSED IN STABLE CONDITION. TO RETURN MONDAY FOR FINAL DOSE.
== END ==
LOC: OPONC 08:39
PROVIDERS: ATTEND Family Medicine
DX: D50.9 Iron deficiency anemia, unspecified (principal)
CPT/HCPCS: 95113

== ENCOUNTER → 2019-09-12 | Outpatient (CLI) | payer OTHER ==
[2019-09-12 11:05] VITALS: BP 132/58
[2019-09-12 11:55] VITALS: BP 139/61
--- NOTE | 2019-09-12 14:49 | NUR ---
IN FOR FINAL VENOFER INFUSION. STATED STILL FEELING VERY TIRED AND HAS NO MOTIVATION. VENOFER GIVEN SLOW IV PUSH AND TOLERATED WELL. OBSERVED FOR 15 MINUTES AND THEN DISMISSED IN STABLE CONDITION. POST BP WNL.
== END ==
LOC: OPONC 08:14
PROVIDERS: ATTEND Family Medicine
DX: D50.9 Iron deficiency anemia, unspecified (principal)
CPT/HCPCS: 95113

== ENCOUNTER → 2019-09-23 | Outpatient (CLI) | payer OTHER | LOC: GI 06:33 | PROVIDERS: ATTEND Specialist | DX: R19.5 Other fecal abnormalities (principal) ==

== ENCOUNTER → 2019-10-11 | Outpatient (CLI) | payer OTHER | LOC: LAB 08:00 → GI 10-16 10:44 | PROVIDERS: ATTEND Specialist | DX: Z01.812 Encounter for preprocedural laboratory examination (principal); Z11.59 Encounter for screening for other viral diseases ==

== ENCOUNTER → 2019-10-16 | Outpatient (CLI) | payer OTHER ==
[~2019-10-16] VITALS: Ht 167.6 cm; Wt 93.0 kg
--- NOTE | 2019-10-18 18:06 | PATH ---
[facility] [address] [place] [address] PATHOLOGY RPT PROCEDURE Name: DIAMOND MATOS Tish Room #: REG JANA Roger.#: [id number] Admission: 10/16/19 Date of : 40 Discharge: Report #: [id number] Path Case #: [id number] [facility] Accession Number: [id number] . 01 Material submitted: . PART A: colon - RANDOM BIOPSY TO R/O COLITIS PART B: colon - POLYP AT DESCENDING COLON. Modifiers: descending . 01 Clinical history: . None provided. . 02 Diagnosis: A. Large intestine, random colon rule out colitis, endoscopic biopsy: - Mild to moderate active colitis with cryptitis and occasional crypt abscess formation. - Negative for granulomata. - Negative for dysplasia or malignancy. . B. Polyp, descending colon, endoscopic biopsy: - Tubular adenoma. - Negative for high grade dysplasia. . (IUV:mml; 10/18/2019) QLM 10/18/2019 1018 Local . 02 Comment: A. Sections of the colonic mucosa designated "random colon" show focal cryptitis, and a moderately cellular lamina propria composed predominantly of lymphocytes and plasma cells and occasional eosinophils. Surface ulceration is not identified. There are no parasites, granulomas or viral inclusions. The process affects all the fragments with a similar intensity. Given the description, the differential diagnosis includes active colitis due to inflammatory bowel disease (including Crohn's disease as well as ulcerative colitis), infectious-type of colitis, drug/medication-induced colitis, as well as active diverticulitis. Subtle architectural abnormalities as well as basal lymphoplasmacytic infiltrates are suggestive of inflammatory bowel disease. Please correlate clinically. . (IUV:mml; 10/18/2019) . 02 Electronically signed: . Qing Goetz MD, Pathologist NPI- [id number] . 01 Gross description: . A. Received in formalin labeled "Diamond Matos random BX rule out [address] [address] PATHOLOGY RPT PROCEDURE Name: DIAMOND MATOS Room #: REG [facility]#: [id number] Admission: 10/16/19 Date of : 40 Discharge: Report #: [id number] Path Case #: [id number] colitis" is a 1.4 x 0.6 x 0.1 cm aggregate of daniels-brown soft tissue fragments. The specimen is submitted entirely in A1. . B. Received in formalin labeled "Diamond Matos, polyp at descending colon" is a 0.5 x 0.3 x 0.1 cm aggregate of daniels-brown soft tissue fragments. The specimen is submitted entirely in B1. ([facility]; 10/17/2019) [facility] 10/17/2019 1511 Local . 02 Pathologist provided ICD-10: K52.9, D12.4 . 02 CPT . 725719, 027149 Specimen Comment: A courtesy copy of this report has been sent to [phone] Specimen Comment: [id number] Specimen Comment: Report sent to / DR DAVE Performed at: [address], [place] [id number] MD Enrique Ramirez MD Phone: [phone] Performed at: [address] [id number] MD Qing Goetz MD Phone: [phone]
--- NOTE | 2019-10-23 10:42 | P ---
[facility] [place] [address] PROCEDURE REPORT Name: DIAMOND MATOS Room #: REG [facility] [id number] Admission: 10/16/19 Attend Phys: Blake Young Discharge: Date of : 40 Report #: [id number] THIS REPORT FOR: cc: Rasta Bobo MD, Neal A. MD McElhinney, Christian C. MD ~ CC: Blake Bobo MD DATE OF SERVICE: 10/16/2019 PROCEDURE PERFORMED: Colonoscopy with biopsies. HISTORY OF PRESENT ILLNESS: The patient is a 79-year-old female who underwent an EGD by myself on 08/28/2019 for anemia. Hemoglobin around that time was 6.8. The patient was on aspirin, denied any melanotic stools. She does report a small amount of bright red blood per rectum at times, but this is rare. Last colonoscopy was in 2018 with left-sided diverticulosis, otherwise negative. 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 Mild gastritis was noted. No evidence of bleeding. Biopsies were negative for sprue and H. pylori. Stool testing for Hemoccult was positive on 08/28/2019. Therefore, we decided to proceed with an M2 capsule next, which did have limitations because it stopped recording several different times during the transition through the small bowel; however, there were no obvious abnormalities noted. When the capsule got into the cecum, there did appear to be some erythema or colitis; therefore, the plan is to proceed with colonoscopy at this time. DESCRIPTION OF PROCEDURE: The risks and benefits of the procedure were explained to the patient, those risks including but not limited to bleeding, perforation and the risk of sedation. She understood these risks and gave informed consent. Sedation was given using propofol per anesthesia. Next, a digital rectal exam was initially performed, which showed small external hemorrhoids, otherwise normal. Next, using a standard Olympus colonoscope, the scope was placed in the patient's anus and advanced under direct vision to the cecum. The overall prep was good. There were numerous tiny somewhat dilated blood vessels noted throughout the entire colon, similar in appearance to AVMs but different. This could be a normal variant; however, in certain areas, these changes were somewhat friable where the scope went by causing a small amount of bleeding. There was no evidence of bright red blood or old blood initially before the scope was placed. Random biopsies were obtained to rule out the possibility of colitis, otherwise normal appearing cecum and ileocecal valve as well as ascending and transverse colon. In the descending colon, there was a 4 mm sessile polyp. This was removed with cold forceps. In the sigmoid colon, multiple diverticula were noted. No evidence of inflammation. The [address] [address] PROCEDURE REPORT Name: CARLODIAMOND M Room #: REG Vick Hickman#: [id number] Admission: 10/16/19 Attend Phys: Blake Young Discharge: Date of : 40 Report #: [id number] mucosa was normal. On retroflexion, small nonbleeding internal hemorrhoids were noted. Scope was then withdrawn and the procedure terminated. The patient tolerated the procedure well. IMPRESSION: 1. Numerous minute hypervascular appearing vessels throughout the entire colon. This could be a normal variant. It was not consistent with AVMs or typical colitis. No active bleeding, however, the tissue was somewhat friable. Multiple biopsies were obtained. 2. Small colonic polyp. 3. Sigmoid diverticulosis. 4. Small internal and external hemorrhoids. RECOMMENDATIONS: Await biopsy results. If there is evidence of colitis, may need to consider treating with mesalamine. If no evidence of colitis, we would likely recommend oral IV iron and monitoring hemoglobin. Thank you for allowing me to participate in her care. <ELECTRONICALLY SIGNED> By: Blake Castrejon MD 10/23/19 [id number] Blake Castrejon MD /nt
== END | disposition home or self-care (01) ==
LOC: GI 10:21
PROVIDERS: ATTEND Specialist
DX: D50.9 Iron deficiency anemia, unspecified (principal); K57.30 Diverticulosis of large intestine without perforation or abscess without bleeding; K64.8 Other hemorrhoids; K63.89 Other specified diseases of intestine; D12.4 Benign neoplasm of descending colon; I10 Essential (primary) hypertension; Z87.440 Personal history of urinary (tract) infections; Z88.1 Allergy status to other antibiotic agents; Z88.8 Allergy status to other drugs, medicaments and biological substances; Z88.2 Allergy status to sulfonamides; Z79.899 Other long term (current) drug therapy; Z98.890 Other specified postprocedural states
CPT/HCPCS: 62110; 62900

== ENCOUNTER → 2019-11-08 | Outpatient (CLI) | payer OTHER ==
[2019-11-08 10:24] LABS: % SATURATION 4 % (20-39); IRON 13 ug/dL (50-170); TIBC 369 ug/dL (250-450)
[2019-11-08 12:33] VITALS: BP 110/68; BP 115/68
--- NOTE | 2019-11-08 17:37 | NUR ---
IN FOR BLOOD TRANSFUSION FOR SYMPTOMATIC ANEMIA WITH HGB 7.6. PATIENT STATED SHE GETS VERY SOB WITH EXERTION AND FEELS VERY WEAK. IV TEAM PLACED SALINE LOCK. PATIENT IS A HARD STICK AND CANNOT USE RIGHT ARM. PATIENT HAS AN ANTIBODY SO TOOK 4 HOURS TO MATCH BLOOD. TOLERATED TRANSFUSION WITHOUT ADVERSE REACTION NOTED. VITAL SIGNS STABLE. ABLE TO AMBULATE TO BATHROOM WITH STANDBY ASSISTANCE. REMOVED IV AND DISMISSED IN STABLE CONDITION.
== END ==
LOC: OPONC 11-07 10:46
PROVIDERS: ATTEND Family Medicine
DX: D64.9 Anemia, unspecified (principal); R53.1 Weakness
CPT/HCPCS: 91030

== ENCOUNTER → 2019-11-15 | Outpatient (CLI) | payer OTHER ==
[2019-11-15 12:57] VITALS: BP 100/53
[2019-11-15 14:50] VITALS: BP 109/47
[2019-11-15 15:10] VITALS: BP 120/47
--- NOTE | 2019-11-15 15:15 | NUR ---
HERE FOR 1ST OF 2 INJECTAFER INFUSIONS FOR PERSISTENTLY LOW IRON. PT STATES SHE HAS HAD GI WORKUP AND IS STARTING ON NEW MED THAT SHOULD HELP PREVENT ANY FURTHER BLEEDING. STATES SHE IS GETTING WEARY WITH ALL THE CONTINUED LOW IRON AND ANEMIA AND FREQUENT MEDICAL VISITS. ASKED VASCULAR ACCESS TEAM NURSE TO START IV PER PT REQUEST. SALINE LOCK WAS PLACED WITH ULTRASOUND L AC WITH GREAT BLOOD RETURN. HOWEVER, WHEN MEDICATION ARRIVED, THIS LINE WAS NO LONGER PATENT. PLACES NEW IV IN LEFT WRIST WHICH HELD FOR ENTIRE INFUSION. DISCUSSED WITH PT THE ISSUE OF POOR VENOUS ACCESS. STATES SHE HAS HAD A PORT IN PLACE IN THE PAST AND WOULD BE WILLING TO DO SO AGAIN TO AVOID SO MANY IV STARTS. HER INITIAL HESITATION IS THE NEED TO HAVE A PREPROCEDURE COVID TEST. NOTIFIED DR. DAVE PER HIS NURSE OF THE REQUEST TO CONSIDER A PORT PLACEMENT ORDER. PT AWARE SHE CAN ACCEPT OR DECLINE BUT DID WANT TO PURSUE THE OPTION. PT TOLERATED INJECTAFER INFUSION WITHOUT INCIDENT, NO S/S REACTION. VSS. WATCHED FOR 30MIN POST. DISMISSED IN STABLE CONDITION. SCHEDULED TO RETURN AGAIN IN ONE WEEK.
== END ==
LOC: OPONC 10:34
PROVIDERS: ATTEND Family Medicine
DX: D50.9 Iron deficiency anemia, unspecified (principal); K90.49 Malabsorption due to intolerance, not elsewhere classified
CPT/HCPCS: 95000

== ENCOUNTER → 2019-11-22 | Outpatient (CLI) | payer OTHER ==
[2019-11-22 13:05] VITALS: BP 114/58
[2019-11-22 14:30] VITALS: BP 121/47
--- NOTE | 2019-11-22 14:44 | NUR ---
IN FOR 2ND INJECTAFER INFUSION. STATED HAD NO SIDE EFFECTS FROM 1ST INFUSION LAST WEEK AND THAT SHE FELT A LITTLE STRONGER. IV TEAM PLACED SALINE LOCK PATIENT IS A VERY DIFFICULT STICK. TOLERATED INFUSION WITHOUT INCIDENT. OBSERVED FOR 30 MINUTES. POST BP STABLE. REMOVED IV AND DISMISSED IN STABLE CONDITION.
== END ==
LOC: OPONC 08:26
PROVIDERS: ATTEND Family Medicine
DX: D50.9 Iron deficiency anemia, unspecified (principal); K90.49 Malabsorption due to intolerance, not elsewhere classified
CPT/HCPCS: 95000

== ENCOUNTER → 2019-12-11 | Outpatient (CLI) | payer OTHER ==
[~2019-12-11] MED LIST changes: +FOLIC ACID1 MG PO; +SULFASALAZINE500 M5 PO
== END ==
LOC: LAB 14:24
PROVIDERS: ATTEND Surgery
DX: Z01.812 Encounter for preprocedural laboratory examination (principal); Z20.828 Contact with and (suspected) exposure to other viral communicable diseases

== ENCOUNTER 2019-12-16 07:47 | Day surgery (SDC) | payer OTHER ==
[~2019-12-16] VITALS: Ht 167.6 cm; Wt 94.0 kg
[2019-12-16 08:34] VITALS: BP 155/68
[2019-12-16 08:34] LABS: HEMOGLOBIN 9.9 gm/dL (12.0-15.0); MCH 28.8 pg (26.0-34.0); MCHC 31.8 g/dL (28.0-37.0); MCV 90.3 fL (80.0-100.0); RBC 3.44 mil/uL (4.20-5.00); WBC 5.3 thou/uL (4.0-11.0)
[2019-12-16] MEDS ORDERED: HYDROCODON-ACE1 EAC7 PO (10:16)
[2019-12-16] MEDS ORDERED: COLACE 100 MG100 MG PO (10:17)
[2019-12-16] MEDS ORDERED: MIRALAX17 GM PO (10:17)
[2019-12-16 12:11] VITALS: BP 155/68
== END 2019-12-16 12:40 | disposition home or self-care (01) ==
LOC: OR 07:47 → TBA 07:47 → OR 08:46
PROVIDERS: ATTEND Surgery
DX: Z45.2 Encounter for adjustment and management of vascular access device (principal); D50.9 Iron deficiency anemia, unspecified; I11.0 Hypertensive heart disease with heart failure; I50.9 Heart failure, unspecified; I48.91 Unspecified atrial fibrillation; E78.5 Hyperlipidemia, unspecified; D64.9 Anemia, unspecified; M19.90 Unspecified osteoarthritis, unspecified site; E11.9 Type 2 diabetes mellitus without complications; E03.9 Hypothyroidism, unspecified; K21.9 Gastro-esophageal reflux disease without esophagitis; Z98.890 Other specified postprocedural states; Z79.899 Other long term (current) drug therapy; Z79.01 Long term (current) use of anticoagulants; Z90.710 Acquired absence of both cervix and uterus; Z96.653 Presence of artificial knee joint, bilateral; Z96.641 Presence of right artificial hip joint; Z98.41 Cataract extraction status, right eye; Z98.42 Cataract extraction status, left eye; Z85.3 Personal history of malignant neoplasm of breast; Z95.0 Presence of cardiac pacemaker; Z88.8 Allergy status to other drugs, medicaments and biological substances
CPT/HCPCS: 50010; 50101; 50386; 50403; 51938; 54118; 56524; 56525; 56526; 62110; 62900; 70005

== ENCOUNTER → 2020-01-07 | Outpatient (CLI) | payer OTHER ==
[~2020-01-07] MED LIST changes: +COLACE 100 MG100 MG PO; +MIRALAX17 GM PO
== END ==
LOC: SJCVC 09:01
PROVIDERS: ATTEND Internal Medicine Cardiovascular Disease
DX: Z95.810 Presence of automatic (implantable) cardiac defibrillator (principal); I48.21 Permanent atrial fibrillation; I10 Essential (primary) hypertension; I49.5 Sick sinus syndrome; I21.29 ST elevation (STEMI) myocardial infarction involving other sites

== ENCOUNTER 2020-03-12 19:18 | Inpatient (IN) | payer OTHER ==
[~2020-03-12] VITALS: Ht 167.6 cm; Wt 95.3 kg
[2020-03-12 19:19] VITALS: BP 157/80
[2020-03-12 20:16] LABS: ABSOLUTE NEUTROPHILS 6.2 thou/uL (1.4-8.2); BASOPHILS 0.9 % (0.0-2.0); EOSINOPHILS 1.3 % (0.0-3.0); HEMATOCRIT 34.7 % (37.0-47.0); HEMOGLOBIN 11.2 gm/dL (12.0-15.0); LYMPHOCYTES 14.3 % (24.0-44.0); MCHC 32.3 g/dL (28.0-37.0); MCV 83.5 fL (80.0-100.0); MONOCYTES 8.5 % (1.0-8.0); PLATELET COUNT 187 thou/uL (150-400); RBC 4.15 mil/uL (4.20-5.00); RDW 16.9 % (10.5-14.5); WBC 8.2 thou/uL (4.0-11.0)
[2020-03-12 20:30] LABS: ANION GAP 9 mmol/L (7-16); BUN 19 mg/dL (7-18); CALCIUM 8.9 mg/dL (8.5-10.1); CHLORIDE 106 mmol/L (98-107); CO2 29 mmol/L (21-32); CREATININE 0.7 mg/dL (0.6-1.0); GLUCOSE 194 mg/dL (74-106); POTASSIUM 3.8 mmol/L (3.5-5.1); SODIUM 144 mmol/L (136-145)
[2020-03-12 20:39] LABS: ALBUMIN 3.5 g/dL (3.4-5.0); SGOT 33 U/L (15-37); SGPT 45 U/L (14-59); TOTAL BILIRUBIN 0.3 mg/dL (0.2-1.0); TOTAL PROTEIN 6.7 g/dL (6.4-8.2); TROPONIN-I <0.06 ng/mL (<0.06)
[2020-03-12 22:35] VITALS: BP 157/75
[2020-03-12 23:45] VITALS: BP 130/83
[2020-03-13 00:05] VITALS: BP 185/101
--- NOTE | 2020-03-13 02:11 | NUR ---
PT WAS ADMITTED TO THE UNIT FROM THE ER IN A STABLE CONDITION.ADMISSION HX,EDUCATION AND ASSESMENT COMPLETED.MED RECONCILATION DONE IN THE ER.R CHEST PORTHA CATH IN PLACE.GAYLE CATH IN PLACE FOR IMMOBILIZATION.PT RESTING ON HER BED AT THIS TIME.CALL LIGHT WITHIN REACH.
[2020-03-13 04:21] VITALS: BP 130/83
[2020-03-13 07:00] VITALS: BP 122/72
--- NOTE | 2020-03-13 08:52 | EKG ---
[address] [place] [address] ELECTROCARDIOGRAM REPORT Name: CARLODIAMOND M Room #: 435-P ADM IN M.R.#: [id number] Admission: 03/12/20 Attend Phys: Rasta Bobo MD Discharge: Date of : 40 Report #: [id number] [facility] ED Test Date: 2020-03-12 Test Time: 19:58:20 Pat Name: DIAMOND MATOS Department: Room: [facility] Gender: F Animal Shelter Manager: milagros : 1940 Requested By: Yuli Blackwell Order Number: [id number] MD: Demarcus Ramos Measurements Intervals Bolton Rate: 76 P: DE: QRS: -32 QRSD: 97 T: 75 QT: 390 QTc: 439 Interpretive Statements Atrial fibrillation Ventricular premature complex Left axis deviation Poor R wave progression v1-3 Compared to ECG 09/02/2019 20:51:37 Left-axis deviation now present Electronically Signed On 03-13-2020 8:52:38 [employer]AY TECHNICIAN by Demarcus Ramos [email or web address] <ELECTRONICALLY SIGNED> By: Demarcus aRmos MD, [facility] 03/13/20 [phone] 57 Demarcus Ramos MD, [facility] /EPI
[2020-03-13 16:45] VITALS: BP 127/53
--- NOTE | 2020-03-13 19:33 | NUR ---
ASSUMED CARE OF THE PATIENT AT 0715, PATIENT ALERT AND ORIENTED X 4. PATIENT ON BED REST, RIGHT FEMORAL FRACTURE. PATIENT C/O PAIN WITH RIGHT LOWER EXT. SHE RECEIVED FENTANYL 50 ERIC X 2 AND HYDROCODONE 1 TABLET X 1 THIS SHIFT. PATIENT HAD RIGHT POC IN PLACE, NS STARTED AT 80CC/HR. PATIENT WILL BE NPO AFTER MIGNIGHT FOR SURG IN AM. GAYLE CATHETER IN PLACE. SON/CRISTINA AT BEDSIDE. PATIENT MOVED TO ROOM 460, REPORT GIVEN TO ALEXANDRO/RN.
[2020-03-13 19:49] VITALS: BP 130/53
--- NOTE | 2020-03-14 04:13 | NUR ---
ASSUMED CARE OF PT AT 1900HRS. PT AOX4 AND LETS NEEDS BE KNOWN. FALL PRECAUTION IN PLACE. PT REPORTED SOME ELVIRA AND WAS TREATED WITH PRN PAIN MEDS. PT DENIED NAUSEA OR SOA. PT PLACED NPO AT MT FOR PROCEDURE IN THE AM. VSS AND NO S/S OF ACUTE DISTRESS. WILL CONTINUE TO MONITOR.
[2020-03-14 08:40] VITALS: BP 150/60
--- NOTE | 2020-03-14 11:11 | NUR ---
Assumed care of pt at 0700. Pt a&ox4. C/o pain RLE. Taken to surgery this am. Alexis catheter in place. RA. Talked to pt's family and updated on situation. Awaiting for pt to come back from surgery.
[2020-03-14 12:29] LABS: HEMATOCRIT 22.6 % (37.0-47.0); MCH 26.6 pg (26.0-34.0); MCHC 31.4 g/dL (28.0-37.0); MCV 84.8 fL (80.0-100.0); RBC 2.67 mil/uL (4.20-5.00); RDW 17.5 % (10.5-14.5); WBC 13.1 thou/uL (4.0-11.0)
[2020-03-14 12:32] LABS: HEMOGLOBIN 7.1 gm/dL (12.0-15.0)
[2020-03-14 13:23] VITALS: BP 137/92
[2020-03-14 13:50] VITALS: BP 118/66; BP 119/60; BP 120/60; BP 122/60
[2020-03-14 16:03] VITALS: BP 132/78
[2020-03-14 20:00] VITALS: BP 126/72
[2020-03-15 03:35] VITALS: BP 106/78
[2020-03-15 06:43] LABS: HEMATOCRIT 22.2 % (37.0-47.0); MCH 26.9 pg (26.0-34.0); MCHC 31.4 g/dL (28.0-37.0); MCV 85.7 fL (80.0-100.0); RBC 2.59 mil/uL (4.20-5.00); RDW 16.9 % (10.5-14.5); WBC 11.2 thou/uL (4.0-11.0)
[2020-03-15 08:05] VITALS: BP 131/67
[2020-03-15 14:19] LABS: CALCIUM 8.1 mg/dL (8.5-10.1); CREATININE 0.8 mg/dL (0.6-1.0); PHOSPHORUS 3.1 mg/dL (2.6-4.7)
--- NOTE | 2020-03-15 17:37 | NUR ---
PT A&OX4, FORGETFUL, VSS, PAIN RIGHT HIP. CYNTHIA DRESSING C/D/I. SUCTION DEVICE CAME OF CYNTHIA DRESSING, DOCTOR NOTIFIED, OK TO LEAVE OFF AND KEEP DRESSING INTACT. PT SEEN BY PT/OT. PORT RIGHT CHEST DRAWS BLOOD, FLUIDS RUNNING. GAYLE INTACT. NO SIGNS OF DISTRESS. WILL CONTINUE TO MONITOR.
--- NOTE | 2020-03-15 18:18 | HC ---
[facility] [place] [address] CONSULTATION Name: DIAMOND MATOS Room #: 460-P [facility] IN M.R.#: [id number] Admission: 03/12/20 Attend Phys: Rasta Bobo MD Discharge: Date of : 40 Report #: [id number] THIS REPORT FOR: cc: Rasta Bobo MD, Neal A. MD Kneidel,Harjit Harris MD ~ DATE OF SERVICE: 03/13/2020 CHIEF COMPLAINT: Right proximal femur fracture. HISTORY OF PRESENT ILLNESS: This is a 79-year-old female who went to the Emergency Room last night after a fall. She states that her leg just gave out, falling and fracturing her right hip. She was evaluated in the Emergency Room to note a proximal femur fracture. Orthopedics was consulted for management of this. PAST MEDICAL AND SURGICAL HISTORY: Tonsillectomy, hysterectomy, Gregg shunt, right total knee replacement, left total knee replacement, pacemaker, right total hip arthroplasty, posterior cervical diskectomy, cardiomyopathy 2006, inguinal hernia, bilateral breast cancer, history of rectocele repair, history of lumbar laminectomy, arthritis, hypothyroidism, hyperlipidemia, non-insulin dependent diabetes, bilateral cataracts, history of colonoscopy, lymphedema in the right arm, CHF, anemia, frequent UTIs, gastroesophageal reflux disease, hypertension. Past medical history is significant for anemia, dependent edema, headaches, hypertension, iron deficiency, nausea and vomiting, history of urinary tract infections and upper GI bleeds. ALLERGIES: NIACIN AND CODEINE. PHYSICAL EXAMINATION: VITAL SIGNS: Note a temperature of 36.4, pulse is 100, respiratory rate is 18, blood pressure is 122/72. EXTREMITIES: Note pain with any range of motion through the right lower extremity. She is having pain extending down to her knee at this point with significant pain at her proximal femur. LABORATORY STUDIES: Note a hemoglobin of 11.2. IMAGING: X-rays of the femur including a CT scan notes a displaced proximal periprosthetic femur fracture with an unstable femoral component. IMPRESSION: Periprosthetic right proximal femur fracture. [address] [address] CONSULTATION Name: CARLODIAMOND Room #: 460-P [facility] IN M.R.#: [id number] Admission: 03/12/20 Attend Phys: Rasta Bobo MD Discharge: Date of : 40 Report #: [id number] PLAN: Risks, benefits, alternatives, complications were discussed at length with the patient. Plan at this point would be to proceed with an open reduction and internal fixation and revision of total hip arthroplasty. Plan on proceeding as soon as medically allowed in the a.m. Thank you for allowing us to participate in the care of this pleasant patient. <ELECTRONICALLY SIGNED> By: Harjit Vincent MD 03/15/20 1818 0914 0930 Harjit Vincent MD /nt
[2020-03-16 04:26] VITALS: BP 120/70
[2020-03-16 05:52] LABS: HEMOGLOBIN 6.6 gm/dL (12.0-15.0)
[2020-03-16 05:54] LABS: HEMATOCRIT 20.4 % (37.0-47.0); MCH 27.8 pg (26.0-34.0); MCHC 32.2 g/dL (28.0-37.0); MCV 86.2 fL (80.0-100.0); RBC 2.37 mil/uL (4.20-5.00); RDW 17.1 % (10.5-14.5); WBC 10.1 thou/uL (4.0-11.0)
--- NOTE | 2020-03-16 06:17 | NUR ---
VSS-AFEBRILE. LUNGS CLEAR-REMAINS ON 2LNC. C/O RIGHT LE PAIN THAT IS WELL RELIEVED WITH PRESCRIBED MEDICATIONS. TURNED AND OFFERED ORAL HYDRATION EVERY TWO HOURS. RIGHT HIP DRESSING DRY AND INTACT. RESTED WELL THROUGH NIGHT WITH FEW NEEDS.
[2020-03-16 07:45] VITALS: BP 103/61
[2020-03-16 12:12] VITALS: BP 120/70; BP 126/68; BP 127/66
--- NOTE | 2020-03-16 12:35 | NUR ---
PT A&OX4, FORGETFUL, VSS, PAIN IN RIGHT HIP. PT/OT IN, GAYLE IN PLACE, RIGHT CHEST PORT PATENT. PATIENT RECEIVED 1 UNIT BLOOD, HBG 6.6. PAIN MEDICATION GIVEN NEEDED. PATIENT EATING AND DRINKING. DRESSING C/D/I ON RIGHT HIP. NO SIGNS OF DISTRESS. WILL CONTINUE TO MONITOR.
[2020-03-16 14:03] VITALS: BP 127/63
--- NOTE | 2020-03-16 16:24 | NUR ---
PT ADMITTED RELATED TO R HIP FX S/P LEANN REVISION, ORIF FEMUR FX. CM CALLED AND SPOKE WITH PT OVER THE PHONE THIS DAY. PT INDICATED SHE LIVES IN A RANCH STYLE HOUSE WITH HER SISTER WITH 2 STEPS TO ENTER AND 11 TO HER BEDROOM BASEMENT. PT INDICATED SHE HAS GRAB BARS AND A SHOWER CHAIR FOR HOME USE. CARE TEAM ARE RECOMENNDING POST ACUTE CARE STAY. SHE IS AGREEABLE. PT HAD INDICATED SHE WOULD BE RECEPTIVE TO STAY AT [facility]. CM CALLED NO OPENINGS. PT RECEPTIVE TO REFERRAL BEING SENT TO THE [facility]. REFERRAL TO BE SENT. CM TO FOLLOW INDICATED WITH DC PLANNING.
--- NOTE | 2020-03-16 16:53 | NUR ---
FAXED REFERRAL TO THE [facility] RECEIVED CONFIRMATION AND LEFT MSG WITH [place] IN ADM. DC INSTITUTIONAL COOK TO FOLLOW.
[2020-03-16 19:17] VITALS: BP 150/79
[2020-03-17 04:58] VITALS: BP 146/61
[2020-03-17] MEDS ORDERED: PERCOCET PO (05:43)
[2020-03-17] MEDS ORDERED: NEURONTIN 300M300 M2 PO (05:43)
[2020-03-17 07:50] VITALS: BP 136/77
[2020-03-17 09:00] VITALS: BP 136/77
--- NOTE | 2020-03-17 15:20 | NUR ---
Received awake on bed. Due medication given as prescribed, able to swallow meds with apple sauce w/o difficulty. On O2 at 2lpm via nasal cannula. On carb controlled diet- tolerating well; no nausea, no vomiting and no abdominal pain noted. On blood sugar monitoring, taken and recorded accordingly. With martinez in place- draining well; output measured and recorded accordingly. With pacemaker; no complains and signs of chest pain, crushing sensation and heaviness. With R chest port- accessed. With CYNTHIA dressing at R foot- box fell off yesterday as reported by emergency spill response technician nurse; C/D/I. Pt reminded re: weight bearing status. Abductor pillow in place, precautions observed. Complained of pain, due PRN pain meds given as prescribed. To continue monitoring patient. Pt with orders to remove martinez- pt threw a fit re: order to remove martinez, requesting to have a few more days before removing it, explained to patient re: risk of infection but still pt refusing to have martinez removed- Dr Bobo informed re: this and said martinez can stay for another 2 days- pt updated. To continue monitoring patient.
--- NOTE | 2020-03-17 16:17 | NUR ---
REFERRAL HAD BEEN SENT TO THE [facility]. [facility] ISN'T ACCEPTING NEW ADMITS AT THIS TIME. REFERRALS WERE SENT TO [facility]. [facility] REVIEWED AND INDICATED THEY WOULD LIKELY BE ABLE TO ACCEPT PT ONCE COVID TEST RESULTS ARE BACK. COVID TEST COLLECTED AND SENT OUT ON 4:00 RUN. FOLLOW UP EARLY AM RELATED TO POSSIBLE DC TO [facility]OP ORDERS FAXED MONDAY.
[2020-03-17 16:56] VITALS: BP 146/61
--- NOTE | 2020-03-17 16:58 | NUR ---
SPOKE WITH HERSON IN ADM AT [facility] THEY DO NOT HAVE A BED AVAILABLE.
[2020-03-18 07:48] VITALS: BP 128/65
[2020-03-18 08:12] LABS: HEMATOCRIT 26.1 % (37.0-47.0); HEMOGLOBIN 8.3 gm/dL (12.0-15.0); MCH 27.4 pg (26.0-34.0); MCHC 31.9 g/dL (28.0-37.0); MCV 85.9 fL (80.0-100.0); RBC 3.03 mil/uL (4.20-5.00); RDW 16.7 % (10.5-14.5)
--- NOTE | 2020-03-18 08:30 | O ---
[place] [address] OPERATIVE REPORT Name: DIAMOND MATOS Room #: 460-P ADM IN M.R.#: [id number] Admission: 03/12/20 Attend Phys: Rasta Bobo MD Discharge: Date of : 40 Report #: [id number] THIS REPORT FOR: cc: Rasta Bobo MD, Neal A. MD Abraham, Scott M. MD ~ DATE OF SERVICE: 03/14/2020 PREOPERATIVE DIAGNOSIS: Right periprosthetic total hip arthroplasty proximal femur fracture. POSTOPERATIVE DIAGNOSIS: Right periprosthetic total hip arthroplasty proximal femur fracture. PROCEDURES: 1. Revision of right total hip arthroplasty, stem only. 2. Open reduction internal fixation, right proximal femur fracture. SURGEON: Giovanny Díaz MD. DIRECT OF REAL ESTATE: Harjit Vincent MD INDICATIONS FOR DIRECT OF REAL ESTATE: Throughout the case, extensive retraction and manipulation of the hip including dislocation and reduction was required. This was afforded to me by my itinerant teacher assistant. ANESTHESIA: General. IMPLANTS: Simon [employer]hew size 11 cable Accord trochanteric director of diagnostic imaging plate, size 18 x 240 Redapt standard offset stem, and a size 32+0 cobalt chrome head. In addition, we used 11 cerclage cables for proximal femoral fixation. ESTIMATED BLOOD LOSS: 1500 mL. COMPLICATIONS: None. SPECIMENS: None. CONDITION UPON LEAVING THE OPERATING ROOM: Stable. INDICATIONS FOR PROCEDURE: The patient is a 79-year-old female who fell and sustained a right periprosthetic proximal femur fracture around the total hip arthroplasty. After discussion with her, she elected for ORIF of the proximal femur and revision of the stem as needed. [address] [place] [address] OPERATIVE REPORT Name: DIAMOND MATOS Room #: 460-P [facility] IN .R.#: [id number] Admission: 03/12/20 Attend Phys: Rasta Bobo MD Discharge: Date of : 40 Report #: [id number] DESCRIPTION OF PROCEDURE: Risks, benefits, alternatives, and complications were discussed in detail with the patient including but not limited to risk of anesthesia; risk of damage to nerves, arteries, blood vessels; risk for infection, bleeding; and risk for leg length discrepancy, instability; and need for reoperation. Informed consent was obtained from the patient. The right hip was appropriately marked in the preoperative holding area. IV Ancef was given for preoperative antibiotics. She was brought to the operating room and general anesthesia was induced without complications. She was transferred on to the table and placed in the left lateral decubitus position with the right hip uppermost. Right hip and lower extremity were prepped and draped in normal sterile fashion. Timeout was performed properly identifying the patient and procedure as well as the instrumentation and implants. All in the operating room were in agreement. A standard posterior approach to the hip was made with 10 blade through the skin. Dissection was taken down to fascia with Bovie cautery and Preez elevator was used to clean off the fascia. Fresh 10 blade was used to make a fascial incision and this was taken proximally and distally with curved Aguilera scissor. Charnley retractor was placed. The posterior capsule was dissected subperiosteally off the posterior surface of the greater trochanter to enter into the hip joint. The hip was dislocated, and the femoral stem and head were easily removed as they were loose secondary to the fracture. The vastus lateralis was then split, and dissection was taken down to the lateral aspect of the femur with a Perez elevator, and the fracture was evaluated. There were multiple pieces to this fracture and so we elected to start with the distal fragment. This was held reduced with a lobster claw and 2 provisional cables were placed around this. The middle fragment was then held reduced, and 1 cable was placed around this. After this, it was felt we had enough provisional fixation to go ahead and place an Accord plate. An 11-cable plate was placed on the lateral femur and several cerclage cables were placed around the femur, reducing the femur to the plate and reducing the fracture itself. After the cables and plate were placed, intraoperative x-ray was taken and verified, and we verified adequate placement of the cables and reduction of the fracture. Attention was then turned to preparation of the femur. The femur was reamed up to a size 18, at which point, an 18 reamer was stable. This was then trialed with a standard offset neck and a 32+0 head. Hip was reduced, taken through range of motion, found to be stable, found to have equal leg lengths. Intraoperative x-ray was taken to verify adequate placement of the stem as well as fill of the femoral canal. The hip was dislocated. A trial stem was removed and final size 18 Redapt x 240 in length, standard offset stem was placed and seated. This was trialed again with a 32+0 head. Hip was reduced, taken through range of motion, found to be stable, found to have near equal leg lengths with slight lengthening on the right compared to left. It was felt that this was acceptable, given the amount of stability that we gained. Hip was dislocated. A final size 32+0 cobalt chrome head was placed. Hip was reduced, taken through range of motion, found to be stable. The wound was thoroughly irrigated with normal saline. A gram of vancomycin was placed deep in the [address] [place] [address] OPERATIVE REPORT Name: CARLODIAMOND Room #: 460-P [facility] IN M.R.#: [id number] Admission: 03/12/20 Attend Phys: Rasta Bobo MD Discharge: Date of : 40 Report #: [id number]. The vastus lateralis was closed with a 0 Vicryl running suture. IT band was closed with interrupted 0 Vicryl, skin was closed with 2-0 Vicryl, skin staple and a CYNTHIA dressing was applied. The patient tolerated this procedure well and went to recovery room under care of anesthesia postoperatively. <ELECTRONICALLY SIGNED> By: Giovanny Díaz MD 03/18/20 0830 1149 [id number] Giovanny Díaz MD /nt
--- NOTE | 2020-03-18 08:53 | NUR ---
progress pt slept most of night taking hydrocodone for pain repositioned as requested pt to dc to rehab when bed available.
--- NOTE | 2020-03-18 09:29 | NUR ---
PT LYING IN BED WITH ABD PILLOW BETWEEN LEGS. PT HAS SCD'S ON. PT BLOOD SUGAR 51 PER PORT DRAW. GAVE PT APPLE JUICE AND PEANUT BUTTER, PT DIDN'T WANT CRACKERS. PT STATED SHE DIDN'T LIKE COFFEE OR FOOD HERE. SHE SAID SHE LIKED THE BOX LUNCH. SHE SAID THAT THE FOOD DIDN'T HAVE ANY SEASONING. PT HAS 5 LEVEL PAIN NOW TO RLE, ADM NORCO 5MG PO FOR PAIN. PT TOLERATING PO PAIN MED. PT STATED SHE IS PASSING GAS, SMALL BM ON 03/16. PT STATED SHE WAS IMPACTED. PT UNABLE TO BEAR WT TO RLE FOR 6 WEEKS. PT LUNGS CLEAR. HAS PORT THAT IS ACCESSED. PT HAS GAYLE TO DD WITH CLEAR YELLOW URINE. PT HAS BOWEL SOUNDS.
--- NOTE | 2020-03-18 11:12 | NUR ---
PT DISCHARGING TODAY TO [facility] FAXED DC ORDERS/SUMMARY TO FACILITY SPOKE WITH GIL IN ADM SHE RECEIVED ORDERS AND ARRANGED A STRETCHER VAN FOR 1430 TODAY. LEFT MSG WITH PT'S SISTER (NAHOMI) OF DC AND TIME OF TRANSPORT. UNIT NOTIFIED AND CHART COPY PER US. RN TO CALL REPORT TO [phone].
--- NOTE | 2020-03-18 13:54 | NUR ---
Pt seen for LOS. Pt with fair to good appetite, consuming avg of 61% of meals. Weights stable this admission and remains within UBW range of 205-212# per EMR review. No c/o GI distress. No PU noted. Pt remains at low nutrition risk at this time.
--- NOTE | 2020-03-18 14:47 | NUR ---
ADM NORCO 5MG PO PRIOR TO PT TRANSPORTING TO CART. PT HAS PORT STILL ACCESSED AND STATED THAT THEY CAN USE IT FOR BLOOD DRAW AT CT.
--- NOTE | 2020-03-18 15:00 | NUR ---
PT LEFT VIA CART TO [facility]. PT WAS TRANSFERED X3 PERSONS AND TOLERATED WELL. PT REFUSED TO TAKE ABD PILLOW, SHE SAID THEY CAN USE PILLOW BETWEEN LEGS. PT GAYLE EMPTIED AND HAS 850ML CLEAR YELLOW URINE. PT BELONGINGS BAGGED UP AND WAS GIVEN TO TRANSPORTERS.
== END 2020-03-18 15:02 | DRG 481 ==
LOC: ER 19:18 → 4W 22:02 → EROBS 22:02 → 4S 22:02 → 4W 03-13 18:25
PROVIDERS: Orthopaedic Surgery; Physician Assistant; Student in an Organized Health Care Education/Training Program; ADMIT Family Medicine; ATTEND Family Medicine
PROC: 0QW604Z Revision of Internal Fixation Device in Right Upper Femur, Open Approach (ICD-10-PCS; principal; 2020-03-14)
PROC: 0QS604Z Reposition Right Upper Femur with Internal Fixation Device, Open Approach (ICD-10-PCS; 2020-03-14)
PROC: 30233N1 Transfusion of Nonautologous Red Blood Cells into Peripheral Vein, Percutaneous Approach (ICD-10-PCS; 2020-03-14)
DX: M97.01XA Periprosthetic fracture around internal prosthetic right hip joint, initial encounter (principal); S32.591A Other specified fracture of right pubis, initial encounter for closed fracture; I42.9 Cardiomyopathy, unspecified; D64.89 Other specified anemias; Z96.641 Presence of right artificial hip joint; E03.9 Hypothyroidism, unspecified; E78.5 Hyperlipidemia, unspecified; I50.9 Heart failure, unspecified; Z96.653 Presence of artificial knee joint, bilateral; S09.90XA Unspecified injury of head, initial encounter; E11.40 Type 2 diabetes mellitus with diabetic neuropathy, unspecified; D64.9 Anemia, unspecified; Z20.828 Contact with and (suspected) exposure to other viral communicable diseases; I11.0 Hypertensive heart disease with heart failure; K52.9 Noninfective gastroenteritis and colitis, unspecified; K21.9 Gastro-esophageal reflux disease without esophagitis; Z98.42 Cataract extraction status, left eye; Z98.41 Cataract extraction status, right eye; Z88.6 Allergy status to analgesic agent; Z95.0 Presence of cardiac pacemaker; Z88.1 Allergy status to other antibiotic agents; Z90.710 Acquired absence of both cervix and uterus; Z90.13 Acquired absence of bilateral breasts and nipples; Z85.3 Personal history of malignant neoplasm of breast; W18.39XA Other fall on same level, initial encounter; Y93.01 Activity, walking, marching and hiking; Y92.89 Other specified places as the place of occurrence of the external cause; Y99.8 Other external cause status
CPT/HCPCS: 10040; 10045; 10100; 50101; 50382; 50414; 51412; 53000; 53078; 56524; 56528; 56530; 57095; 57103; 62110; 62900; 70005